=== PATIENT | female | born 1945 | race Caucasian/White ===

== ENCOUNTER 2016-10-18 18:52 | Emergency (ER) | payer MEDICARE, OTHER ==
[2016-10-18] MEDS ORDERED: Aspirin Low Dose CHEW TAB* 81 MG PO ONE (19:26)
[2016-10-18 19:50] LABS: Hematocrit 41 % (35-47); Hemoglobin 13.4 g/dl (12.0-16.0); Mean Corpuscular HGB Conc 33 g/dl (31-36); Mean Corpuscular Hemoglobin 30 pg (27-31); Mean Corpuscular Volume 90 fL (80-97); Mean Platelet Volume 7 um3 (7.4-10.4); Red Blood Count 4.53 10^6/ul (4.0-5.4); Red Cell Distribution Width 16 % (10.5-15); White Blood Count 9.9 10^3/ul (3.5-10.8)
[2016-10-18 20:03] LABS: ALT 24 U/L (7-52); Albumin 4.2 g/dL (3.2-5.2); Alkaline Phosphatase 61 U/L (34-104); BUN/Creatinine Ratio 15.3 (8-20); Blood Urea Nitrogen 13 mg/dL (6-24); CO2 Carbon Dioxide 21 mmol/L (22-32); Calcium 9.6 mg/dL (8.6-10.3); Chloride 104 mmol/L (101-111); EGFR African American 84.8 (>60); EGFR Non-African American 65.9 (>60); Globulin 2.7 g/dL (2-4); Glucose 81 mg/dL (70-100); Sodium 135 mmol/L (133-145); Total Protein 6.9 g/dL (6.4-8.9)
[2016-10-18 20:44] VITALS: BP 150/80
--- NOTE | 2016-10-18 20:50 | RAD ---
Indication: Tachycardia, arrhythmia, shortness of breath. Assess for CHF. Comparison: None. Technique: Upright AP 1957 hours Report: Accounting for superimposed soft tissues and normal bronchovascular markings the lungs and pleural spaces are clear. Negative for pneumothorax. The heart, pulmonary vasculature, and mediastinal contours are unremarkable. IMPRESSION: No evidence for acute intrathoracic disease.
--- NOTE | 2016-10-18 22:03 | ED ---
Carlos Hidalgo Erika, scribed for Jerrell Fan MD on 10/18/16 at 2026 . Palpitations / Dysrhythmia - HPI Summary HPI Summary: Patient is a 71-year-old female presenting to the ED with a CC of palpitations. Pt reports that she was seen by her PCP on 10/16/2016, who noted elevated BP and a new RBBB. Her HTN medication was changed from metoprolol to lisinopril 20 mg. Since then, pt states her BP has improved, but she has had palpitations and a rapid heart rate. She reports that her pulse has been jumping - from the 80s to the 100s in a matter of seconds, per pt. She also reports SOB for 2 months, worse with exertion. She denies Hx SVT, A Fib. She reports her mother had a pacemaker. - History of Current Complaint Chief Complaint: EDDysrhythmPalp Time Seen by Provider: 10/18/16 19:25 Hx Obtained From: Patient Onset/Duration: Sudden Onset, Lasting Days, Still Present Timing: Intermittent Episodes Lasting: - seconds Severity Initially: Moderate Character: Fast, Irregular Aggravating: Exertion Associated Signs & Symptoms: Lightheadedness, Shortness of Breath - Allergy/Home Medications Allergies/Adverse Reactions: Allergies Allergy/AdvReac Type Severity Reaction Status Date / Time No Known Allergies Allergy Verified 10/18/16 19:04 PMH/Surg Hx/FS Hx/Imm Hx Endocrine/Hematology History: Reports: Hx Diabetes - PRE DIABETIC Cardiovascular History: Reports: Hx Hypertension Denies: Hx Pacemaker/ICD History: Denies: Hx Renal Disease Sensory History: Denies: Hx Hearing Aid Psychiatric History: Denies: Hx Panic Disorder - Surgical History Surgery Procedure, Year, and Place: TONSILS AGE 3. 1975 TUBAL LIGATION-1978 BREAST IMPLANTS-1997 REMOVED IMPLANTS. BILATERAL OOPHORECTOMY 2003-RIGHT INGUINAL HERNIA REPAIR 2006. 2006 APPENDIX-09/2007 DOUBLE INCISIONAL HERNIA Infectious Disease History: No Infectious Disease History: Denies: Traveled Outside the [place] in Last 30 Days - Family History Known Family History: Positive: Cardiac Disease - pacemaker - Social History Alcohol Use: None Hx Substance Use: No Substance Use Type: Reports: None Hx Tobacco Use: Yes Smoking Status (MU): Former Smoker Review of Systems Positive: Palpitations. Negative: Chest Pain Positive: Shortness Of Breath Neurological: Other - lightheadedness All Other Systems Reviewed And Are Negative: Yes Physical Exam - Summary Physical Exam Summary: Constitutional: Comfortable, pleasant, alert HEENT: moist mucosa Neck: Soft, supple, no adenopathy, no edema. No JVD Heart: S1, S2, RRR, no murmurs, rubs, or gallops Lungs: clear, breathing comfortably, no wheezes, no rales Abdomen: Soft, flat, non-tender. Extremities: Trace pitting edema with no tenderness Neurological: A&Ox3 Psychological: logical, coherent Triage Information Reviewed: Yes Vital Signs On Initial Exam: Initial Vitals Temp Pulse Resp BP Pulse Ox 97.6 F 82 18 139/79 100 10/18/16 18:56 10/18/16 18:56 10/18/16 18:56 10/18/16 18:56 10/18/16 18:56 Vital Signs Reviewed: Yes - Igor Coma Scale Coma Scale Total: 15 Diagnostics - Vital Signs Vital Signs Temp Pulse Resp BP Pulse Ox 10/18/16 19:31 79 24 138/88 96 10/18/16 19:24 73 98 10/18/16 19:22 139/80 10/18/16 18:56 97.6 F 82 18 139/79 100 - Laboratory Lab Results: Lab Results 10/18/16 10/18/16 10/18/16 Range/Units 19:35 19:35 19:35 WBC 9.9 (3.5-10.8) 10^3/ul RBC 4.53 (4.0-5.4) 10^6/ul Hgb 13.4 (12.0-16.0) g/dl Hct 41 (35-47) % MCV 90 (80-97) fL MCH 30 (27-31) pg MCHC 33 (31-36) g/dl RDW 16 H (10.5-15) % Plt Count 225 (150-450) 10^3/ul MPV 7 L (7.4-10.4) um3 Neut % (Auto) 53.5 (38-83) % Lymph % (Auto) 38.8 (25-47) % [place] % (Auto) 4.8 (1-9) % Eos % (Auto) 2.0 (0-6) % Baso % (Auto) 0.9 (0-2) % Absolute Neuts (auto) 5.3 (1.5-7.7) 10^3/ul Absolute Lymphs (auto) 3.8 (1.0-4.8) 10^3/ul Absolute Monos (auto) 0.5 (0-0.8) 10^3/ul Absolute Eos (auto) 0.2 (0-0.6) 10^3/ul Absolute Basos (auto) 0.1 (0-0.2) 10^3/ul Absolute Nucleated RBC 0 10^3/ul Nucleated RBC % 0 Sodium 135 (133-145) mmol/L Potassium TNP Chloride 104 (101-111) mmol/L Carbon Dioxide 21 L (22-32) mmol/L Anion Gap TNP BUN 13 (6-24) mg/dL Creatinine 0.85 (0.51-0.95) mg/dL Est GFR ( Amer) 84.8 (>60) Est GFR (Non-Af Amer) 65.9 (>60) BUN/Creatinine Ratio 15.3 (8-20) Glucose 81 (70-100) mg/dL Calcium 9.6 (8.6-10.3) mg/dL Total Bilirubin 0.30 (0.2-1.0) mg/dL AST TNP ALT 24 (7-52) U/L Alkaline Phosphatase 61 (34-104) U/L Troponin I 0.00 (<0.04) ng/mL B-Natriuretic Peptide 50 ( - 100) pg/mL Total Protein 6.9 (6.4-8.9) g/dL Albumin 4.2 (3.2-5.2) g/dL Globulin 2.7 (2-4) g/dL Albumin/Globulin Ratio 1.6 (1-3) 10/18/16 Range/Units 20:30 WBC (3.5-10.8) 10^3/ul RBC (4.0-5.4) 10^6/ul Hgb (12.0-16.0) g/dl Hct (35-47) % MCV (80-97) fL MCH (27-31) pg MCHC (31-36) g/dl RDW (10.5-15) % Plt Count (150-450) 10^3/ul MPV (7.4-10.4) um3 Neut % (Auto) (38-83) % Lymph % (Auto) (25-47) % [place] % (Auto) (1-9) % Eos % (Auto) (0-6) % Baso % (Auto) (0-2) % Absolute Neuts (auto) (1.5-7.7) 10^3/ul Absolute Lymphs (auto) (1.0-4.8) 10^3/ul Absolute Monos (auto) (0-0.8) 10^3/ul Absolute Eos (auto) (0-0.6) 10^3/ul Absolute Basos (auto) (0-0.2) 10^3/ul Absolute Nucleated RBC 10^3/ul Nucleated RBC % Sodium (133-145) mmol/L Potassium 4.1 Chloride (101-111) mmol/L Carbon Dioxide (22-32) mmol/L Anion Gap BUN (6-24) mg/dL Creatinine (0.51-0.95) mg/dL Est GFR ( Amer) (>60) Est GFR (Non-Af Amer) (>60) BUN/Creatinine Ratio (8-20) Glucose (70-100) mg/dL Calcium (8.6-10.3) mg/dL Total Bilirubin (0.2-1.0) mg/dL AST 31 ALT (7-52) U/L Alkaline Phosphatase (34-104) U/L Troponin I (<0.04) ng/mL B-Natriuretic Peptide ( - 100) pg/mL Total Protein (6.4-8.9) g/dL Albumin (3.2-5.2) g/dL Globulin (2-4) g/dL Albumin/Globulin Ratio (1-3) Result Diagrams: 10/18/16 19:35 10/18/16 20:30 Lab Statement: Any lab studies that have been ordered have been reviewed, and results considered in the medical decision making process. - Radiology CXR Radiology Interpretation Completed By: Radiologist - IMPRESSION: No evidence for acute intrathoracic disease. - EKG 19:05 Cardiac Rate: NL - 73 bpm EKG Rhythm: Sinus Rhythm EKG Interpretation: RBBB. No ST changes. Negative for Sgarbossa criteria Course/Dx - Course Assessment/Plan: She has had a few months of palpitations and racing heart. In the past week she describes some dizziness. She presents quite comfortable with normal vitals. She is currently asymptomatic. With her symptoms and random episodes of tachycardia, we are concerned for arrhythmia. There is also concern for cardiac ischemia, however, with 2 months of symptoms and no chest pain or other definitive cardiac Sx with exertion up the stairs besides simply SOB, I do not believe she needs to be admitted today. We will send her to cardiology for possible holter, event recorder, and/or stress test. She does agree to return at any point over the weekend should she have any worsening symptoms or symptoms of crescendo angina. At the moment, she is experiencing no pain or cardiac ischemic equivalence. To make sure, we ambulated her around the entire loop of the she never desaturated, and she did not need to take a break. When she got back her bed, her HR was 98. We did also talk at length about her exercise-induced asthma, and she will try using her inhaler the next time she exerts. Regardless, she and her daughter both agree to return immediately for any signs of worsening, any change, or any new symptoms, and we described these in detail. - Diagnoses Differential Diagnosis/HQI/PQRI: Positive: AV Block, Cardiomyopathy, Chronic Obstructive Pulmonary Disease, Congestive Heart Failure, Coronary Artery Disease , Hypokalemia, Hyperventilation, Mitral Valve Prolapse, Myocarditis, Panic Disorder, Paroxymal SVT, Pericarditis, Pulmonary Embolism, V-Tach Provider Diagnoses: LOUIE (dyspnea on exertion), Tachycardia, Palpitations Discharge - Discharge Plan Condition: Good Disposition: HOME Patient Education Materials: Palpitations (ED) Referrals: Andres Mckeon DO [Medical Doctor] - 5 Days Alma Rosa Cool MD [Primary Care Provider] - The documentation as recorded by the Carlos jin Erika accurately reflects the service I personally performed and the decisions made by , Jerrell Fan MD.
== END 2016-10-18 21:12 | disposition home or self-care (01) ==
LOC: ED 18:52
DX: R06.00 Dyspnea, unspecified (principal); R00.0 Tachycardia, unspecified; R00.2 Palpitations; Z87.891 Personal history of nicotine dependence; R06.02 Shortness of breath
CPT/HCPCS: 36415; 71010; 80053; 83880; 84484; 85025; 93005; 99283

== ENCOUNTER 2016-11-30 08:28 | Emergency (ER) | payer MEDICARE, OTHER ==
[2016-11-30 09:22] LABS: Hematocrit 39 % (35-47); Hemoglobin 12.7 g/dl (12.0-16.0); Mean Corpuscular HGB Conc 33 g/dl (31-36); Mean Corpuscular Hemoglobin 30 pg (27-31); Mean Corpuscular Volume 90 fL (80-97); Mean Platelet Volume 7 um3 (7.4-10.4); Red Blood Count 4.28 10^6/ul (4.0-5.4); Red Cell Distribution Width 15 % (10.5-15); White Blood Count 9.8 10^3/ul (3.5-10.8)
[2016-11-30] MEDS ORDERED: Morphine INJ* 4 MG/ML 1 ML CARPUJECT IV ONE ×2 (09:33→10:26)
[2016-11-30] MEDS ORDERED: Ondansetron INJ* 2 MG/ML VIAL IV ONE (09:33)
[2016-11-30] MEDS ORDERED: NS 0.9% 1000 ML* 1,000 ML IV ONE (09:33)
[2016-11-30 09:37] LABS: Albumin 3.9 g/dL (3.2-5.2); C Reactive Protein 17.41 mg/L (< 5.00); Calcium 9.2 mg/dL (8.6-10.3); EGFR African American 75.5 (>60); EGFR Non-African American 58.7 (>60); Globulin 2.7 g/dL (2-4); Potassium 4.3 mmol/L (3.5-5.0); Total Bilirubin 0.3 mg/dL (0.2-1.0); Total Protein 6.6 g/dL (6.4-8.9)
--- NOTE | 2016-11-30 10:23 | ED ---
Abdominal Pain/Female - HPI Summary HPI Summary: Patient presents with LLQ and left thigh pain that began at approximately 0100 this AM with known incident. She also had 8 episode of urinary urgency since her pain began and actually urinated quite a bit each time. She had an episode of diverticulitis in 2008 that felt similar to her current symptoms. She denies fever, chills, N/V/D, constipation or anorexia. Her pain is a constant 8 and can surge to 11. She denies CP, back pain or vaginal discharge. She had an episode of SOB yesterday afternoon while sitting that has resolved. Her left thigh is tender and the pain goes through her groin from the belly to the leg. - History of Current Complaint Chief Complaint: EDAbdJosein Stated Complaint: ABD PAIN Time Seen by Provider: 11/30/16 08:43 Hx Obtained From: Patient, Family/Electro Mechanical Engineer ?: No Onset/Duration: Sudden Onset Timing: Constant Severity Initially: Severe Severity Currently: Severe Pain Intensity: 9 Location: Discrete At: LLQ Character: Sharp Aggravating Factor(s): Movement Alleviating Factor(s): Nothing Associated Signs and Symptoms: Positive: Urinary Symptoms Allergies/Adverse Reactions: Allergies Allergy/AdvReac Type Severity Reaction Status Date / Time No Known Allergies Allergy Verified 11/30/16 08:36 PMH/Surg Hx/FS Hx/Imm Hx Endocrine/Hematology History: Reports: Hx Diabetes - PRE DIABETIC Cardiovascular History: Reports: Hx Hypertension Denies: Hx Pacemaker/ICD History: Denies: Hx Renal Disease Sensory History: Denies: Hx Hearing Aid Psychiatric History: Denies: Hx Panic Disorder - Surgical History Surgery Procedure, Year, and Place: TONSILS AGE 3. 1975 TUBAL LIGATION-1978 BREAST IMPLANTS-1997 REMOVED IMPLANTS. BILATERAL OOPHORECTOMY 2003-RIGHT INGUINAL HERNIA REPAIR 2006. 2006 APPENDIX-09/2007 DOUBLE INCISIONAL HERNIA Infectious Disease History: No Infectious Disease History: Denies: Traveled Outside the [place] in Last 30 Days - Family History Known Family History: Positive: Cardiac Disease - pacemaker - Social History Occupation: Retired Lives: With Family Alcohol Use: None Hx Substance Use: No Substance Use Type: Reports: None Hx Tobacco Use: Yes Smoking Status (MU): Former Smoker Review of Systems Negative: Fever, Chills Negative: Chest Pain Positive: Shortness Of Breath - x 1 yesterday, resolved. Negative: Cough Positive: Abdominal Pain. Negative: Vomiting, Diarrhea, Nausea Positive: frequency, urgency. Negative: burning, dysuria, discharge Negative: Myalgia, Edema All Other Systems Reviewed And Are Negative: Yes Physical Exam Triage Information Reviewed: Yes Vital Signs On Initial Exam: Initial Vitals Temp Pulse Resp BP Pulse Ox 97.0 F 75 20 104/63 98 11/30/16 08:31 11/30/16 08:31 11/30/16 08:31 11/30/16 08:31 11/30/16 08:31 Vital Signs Reviewed: Yes Appearance: Positive: Well-Appearing, Pain Distress, Obese Skin: Positive: Warm, Skin Color Reflects Adequate Perfusion, Dry, Soft Head/Face: Positive: Normal Head/Face Inspection Eyes: Positive: EOMI, NIKKI, Conjunctiva Clear ENT: Positive: Hearing grossly normal Neck: Positive: Supple, Nontender, No Lymphadenopathy Respiratory/Lung Sounds: Positive: Clear to Auscultation, Breath Sounds Present Cardiovascular: Positive: RRR Abdomen Description: Positive: Soft, Guarding. Negative: Nontender - LLQ tenderness to light palpation with otherwise diffuse mild tenderness, CVA Tenderness (R), CVA Tenderness (L), McBurney's Point Tenderness, Peritoneal Signs, Pulsatile Mass Bowel Sounds: Positive: Hypoactive Musculoskeletal: Negative: Edema Left, Edema Right Neurological: Positive: Sensory/Motor Intact, Alert, Oriented to Person Place, Time, NV Bundle Intact Distally Psychiatric: Positive: Affect/Mood Appropriate AVPU Assessment: Alert - [place] Coma Scale Coma Scale Total: 15 Diagnostics - Vital Signs Vital Signs Temp Pulse Resp BP Pulse Ox 11/30/16 09:38 16 11/30/16 09:30 64 102/46 97 11/30/16 09:00 63 115/69 94 11/30/16 08:50 67 98 11/30/16 08:48 121/57 11/30/16 08:31 97.0 F 75 20 104/63 98 - Laboratory Lab Results: Lab Results 11/30/16 11/30/16 11/30/16 Range/Units 09:15 09:15 09:15 WBC 9.8 (3.5-10.8) 10^3/ul RBC 4.28 (4.0-5.4) 10^6/ul Hgb 12.7 (12.0-16.0) g/dl Hct 39 (35-47) % MCV 90 (80-97) fL MCH 30 (27-31) pg MCHC 33 (31-36) g/dl RDW 15 (10.5-15) % Plt Count 181 (150-450) 10^3/ul MPV 7 L (7.4-10.4) um3 Neut % (Auto) 67.8 (38-83) % Lymph % (Auto) 23.3 L (25-47) % [place] % (Auto) 5.7 (1-9) % Eos % (Auto) 2.4 (0-6) % Baso % (Auto) 0.8 (0-2) % Absolute Neuts (auto) 6.7 (1.5-7.7) 10^3/ul Absolute Lymphs (auto) 2.3 (1.0-4.8) 10^3/ul Absolute Monos (auto) 0.6 (0-0.8) 10^3/ul Absolute Eos (auto) 0.2 (0-0.6) 10^3/ul Absolute Basos (auto) 0.1 (0-0.2) 10^3/ul Absolute Nucleated RBC 0.02 10^3/ul Nucleated RBC % 0.2 Sodium 138 (133-145) mmol/L Potassium 4.3 (3.5-5.0) mmol/L Chloride 106 (101-111) mmol/L Carbon Dioxide 25 (22-32) mmol/L Anion Gap 7 (2-11) mmol/L BUN 15 (6-24) mg/dL Creatinine 0.94 (0.51-0.95) mg/dL Est GFR ( Amer) 75.5 (>60) Est GFR (Non-Af Amer) 58.7 (>60) BUN/Creatinine Ratio 16.0 (8-20) Glucose 116 H (70-100) mg/dL Lactic Acid 1.6 (0.5-2.0) mmol/L Calcium 9.2 (8.6-10.3) mg/dL Total Bilirubin 0.30 (0.2-1.0) mg/dL AST 18 (13-39) U/L ALT 16 (7-52) U/L Alkaline Phosphatase 52 (34-104) U/L C-Reactive Protein 17.41 H (< 5.00) mg/L Total Protein 6.6 (6.4-8.9) g/dL Albumin 3.9 (3.2-5.2) g/dL Globulin 2.7 (2-4) g/dL Albumin/Globulin Ratio 1.4 (1-3) Amylase 23 L (29-103) U/L Lipase 28 (11.0-82.0) U/L Result Diagrams: 11/30/16 09:15 11/30/16 09:15 Lab Statement: Any lab studies that have been ordered have been reviewed, and results considered in the medical decision making process. - Ultrasound No standard instances Ultrasound Interpretation: No Acute Changes Ultrasound Interpretation Completed By: Radiologist Re-Evaluation - Re-Evaluation First Eval Re-Evaluation Time: 10:20 Change: Worse Comment: Patient has continued pain after first dose of pain medication. Second Eval Re-Evaluation Time: 11:20 Change: Improved Comment: Patient resting comfortably drinking contrast. Third Eval Re-Evaluation Time: 11:55 Change: Worse Comment: Patient was taken to CT and was unable to have the test due to anxiety. She was brought back to the department. I will give an ativan and pain medication to facilitate this needed test. Fourth Eval Re-Evaluation Time: 13:25 Change: Improved Comment: Pain well controlled Abdominal Pain Fem Course/Dx - Diagnoses Differential Diagnosis: Positive: Appendicitis, Bowel Obstruction, Diverticulitis, Ovarian Cyst, Renal Colic, Urinary Tract Infection Provider Diagnoses: Diverticulitis Discharge - Discharge Plan Condition: Stable Disposition: HOME Prescriptions: Amoxicillin/Clavulanate TAB* [Augmentin TAB 875*] 875 mg PO BID #19 tab oxyCODONE/Acetamin 5/325 MG* [Percocet 5/325 TAB*] 2 tab PO Q6H PRN #30 tab MDD 8 PRN Reason: Pain Patient Education Materials: Diverticulitis (ED), Diverticulitis Diet (ED) Referrals: Alma Rosa Cool MD [Primary Care Provider] - Additional Instructions: Please take your antibiotics until they are completely gone. Take ibuprofen 600mg three times daily with meals for the next 3-5 days to reduce pain. Use pain medication as needed. Follow-up with your primary care provider in 2-3 days for evaluation. Return to the emergency department if your symptoms worsen.
[2016-11-30 10:41] LABS: Urine Bilirubin Negative (Negative); Urine Glucose Negative (Negative); Urine Nitrite Negative (Negative)
--- NOTE | 2016-11-30 11:03 | RAD ---
INDICATION: Left lower extremity pain. COMPARISON: There are no prior studies available for comparison. TECHNIQUE: Multiple real-time, color flow and Doppler tracings of the left lower extremity were obtained. FINDINGS: The common femoral, femoral, profunda femoral and popliteal veins all demonstrate normal compressibility, augmentation with compression and phasic response with respiration. The posterior tibial veins demonstrate normal compressibility and augmentation with compression. Only one left peroneal vein is visualized possibly due to the patient's body habitus. IMPRESSION: LIMITED EXAMINATION OF THE CALF, NO EVIDENCE FOR DEEP VENOUS THROMBOSIS.
[2016-11-30] MEDS ORDERED: Iodixanol* (CONTRAST) 320 MG/ML 100 ML SDV IV ONE (11:38)
[2016-11-30] MEDS ORDERED: LORazepam INJ* 2 MG/ML 1 ML VIAL IV ONE (11:52)
[2016-11-30] MEDS ORDERED: LORazepam INJ* 2 MG/ML 1 ML VIAL ONE (11:54)
[2016-11-30] MEDS ORDERED: HYDROmorphone INJ* 1 MG/ML CARPUJECT SYRINGE IV SLOW PU ONE (12:00)
--- NOTE | 2016-11-30 13:03 | RAD ---
INDICATION: Left lower quadrant pain, history of diverticulitis. COMPARISON: There are no prior studies available for comparison. TECHNIQUE: A CT scan of the abdomen and pelvis was performed with intravenous and oral contrast following intravenous injection of 140 ml of Visipaque 320 nonionic contrast. Contiguous axial sections were obtained from the lung bases through the symphysis pubis. Images were reconstructed in the coronal and sagittal planes. FINDINGS: There is mild dependent bilateral lower lobe subsegmental atelectasis. No pleural effusion is present. The liver and spleen are mildly enlarged. The liver is decreased in attenuation consistent with fatty infiltration. No significant focal hepatic abnormality is seen. No calcified gallstones are noted. The pancreas appears to be within normal limits. The kidneys and adrenal glands are normal in size. No hydronephrosis is seen. No significant focal renal abnormality is seen. The aorta is normal in caliber with mild calcific plaque present. No significant enlarged retroperitoneal lymph nodes are seen. The stomach, small and large bowel appear nondistended. The patient is status post appendectomy by history. There is moderate to severe descending and sigmoid diverticulosis. In addition there is thickening of the wall of the proximal sigmoid colon with stranding in the adjacent mesenteric fat. These findings are nonspecific although most consistent with diverticulitis. No abscess is seen. There is a small periumbilical hernia containing fat. There is a mesh graft present in the lower anterior abdominal wall from a prior hernia repair. The uterus is anteverted and normal in size. No free intraperitoneal air or fluid is seen. No significant focal osseous abnormality is seen. IMPRESSION: 1. FINDINGS SUGGESTIVE OF DIVERTICULITIS OF THE PROXIMAL SIGMOID COLON. RECOMMEND CLINICAL CORRELATION. 2. HEPATOSPLENOMEGALY AND HEPATIC STEATOSIS.
[2016-11-30 13:51] VITALS: BP 128/62
== END 2016-11-30 13:43 | disposition home or self-care (01) ==
LOC: ED 08:28
DX: K57.92 Diverticulitis of intestine, part unspecified, without perforation or abscess without bleeding (principal); R10.32 Left lower quadrant pain; R06.02 Shortness of breath; Z87.891 Personal history of nicotine dependence
CPT/HCPCS: 36415; 74177; 80053; 81003; 82150; 83605; 83690; 85025; 85379; 86140; 96374; 96375; 99283; J1170; J2060; J2270; J2405; Q9967

== ENCOUNTER 2018-06-19 13:47 | Emergency (ER) | payer MEDICARE, OTHER ==
[2018-06-19 13:58] VITALS: BP 142/80
--- NOTE | 2018-06-19 14:28 | UC ---
UC General HPI - HPI Summary HPI Summary: 73-year-old female presents requesting chest x-ray. States she has had a positive TB skin test in the past follow TB exposure while in the [employer]. She is moving to assisted living in [place] and they are requiring her to have documentation that there is no active disease. - History of Current Complaint Chief Complaint: UCGeneralIllness Stated Complaint: NEEDS CHEST XRAY Time Seen by Provider: 06/19/18 14:08 Hx Obtained From: Patient Pain Intensity: 0 - Allergy/Home Medications Allergies/Adverse Reactions: Allergies Allergy/AdvReac Type Severity Reaction Status Date / Time No Known Allergies Allergy Verified 06/19/18 13:59 PMH/Surg Hx/FS Hx/Imm Hx Endocrine History: Diabetes, Thyroid Disease, Dyslipidemia Cardiovascular History: Hypertension Respiratory History: COPD, Other - Sleep apnea Other Respiratory History: OLIVIA - Surgical History Surgical History: Yes Surgery Procedure, Year, and Place: TONSILS AGE 3. 1974 TUBAL LIGATION-1978 BREAST IMPLANTS-1997 REMOVED IMPLANTS. BILATERAL OOPHORECTOMY 2003-RIGHT INGUINAL HERNIA REPAIR 2006. 2006 APPENDIX-09/2007 DOUBLE INCISIONAL HERNIA - Family History Known Family History: Positive: Cardiac Disease - pacemaker - Social History Occupation: Retired Lives: Alone Alcohol Use: None Substance Use Type: None Smoking Status (MU): Former Smoker Review of Systems Constitutional: Negative Skin: Negative Respiratory: Negative Cardiovascular: Negative Is Patient Immunocompromised?: No All Other Systems Reviewed And Are Negative: Yes Physical Exam Triage Information Reviewed: Yes Appearance: Well-Appearing, No Pain Distress, Well-Nourished Vital Signs: Initial Vital Signs Temp 97.4 F 06/19/18 13:55 Pulse 79 06/19/18 13:55 Resp 17 06/19/18 13:55 BP 142/80 06/19/18 13:55 Pulse Ox 98 06/19/18 13:55 Vital Signs Reviewed: Yes Eyes: Positive: Conjunctiva Clear. Negative: Discharge ENT Exam: Normal Neck: Positive: Supple, Nontender, No Lymphadenopathy Respiratory: Positive: Chest non-tender, Lungs clear, Normal breath sounds, No respiratory distress Cardiovascular: Positive: RRR, No Murmur, Pulses Normal, Brisk Capillary Refill Neurological: Positive: Alert Skin Exam: Normal Diagnostics - Radiology No standard instances Xray Interpretation: No Acute Changes Radiology Interpretation Completed By: ED Physician, Radiologist Course/Dx - Course Course Of Treatment: 73 year old female with past exposure to TB requesting chest X-ray to document no active disease as she is moving into assisted living. Exam unremarkable. CXR showed no acute cardiopulmonary pathology. - Differential Dx - Multi-Symptom Provider Diagnoses: Nonspecific reaction to tuberculin skin test without active tuberculosis Discharge - Sign-Out/Discharge Documenting (check all that apply): Patient Departure All imaging exams completed and their final reports reviewed: Yes - Discharge Plan Condition: Stable Disposition: HOME Patient Education Materials: Tuberculosis (ED) Referrals: Alma Rosa Cool MD [Primary Care Provider] - If Needed Additional Instructions: Your chest X-ray in the clinic today showed no evidence of active TB. Follow up with your primary care provider as needed. - Billing Disposition and Condition Condition: STABLE Disposition: Home
--- NOTE | 2018-06-19 14:35 | RAD ---
INDICATION: Positive TB test. No acute symptoms. COMPARISON: October 18, 2016 TECHNIQUE: Dual energy PA and routine lateral views of the chest were obtained. REPORT: Elevated lung volumes. Clear lungs and pleural spaces. The heart, pulmonary vasculature, and mediastinal contours are unremarkable. Unremarkable osseous structures and soft tissue contours. IMPRESSION: #. Negative for acute thoracic inflammatory disease or stigmata of prior granulomatous disease. #. Stigmata of potential obstructive lung disease.
== END 2018-06-19 14:43 | disposition home or self-care (01) ==
LOC: UCEAST 13:47
DX: R76.11 Nonspecific reaction to tuberculin skin test without active tuberculosis (principal); Z95.0 Presence of cardiac pacemaker; I51.9 Heart disease, unspecified; I10 Essential (primary) hypertension; Z87.891 Personal history of nicotine dependence
CPT/HCPCS: 71046; 99211; G0463